=== PATIENT | female | born 1970 | race Caucasian/White ===

== ENCOUNTER 2017-06-12 20:17 | Emergency (ER) | payer OTHER ==
[~2017-06-12] VITALS: Ht 177.8 cm; Wt 73.4 kg
[2017-06-12] MEDS ORDERED: KEFLEX500 MG PO (21:24)
[2017-06-12 21:55] VITALS: BP 120/79
== END 2017-06-12 21:56 | disposition home or self-care (01) ==
LOC: EME 20:17
DX: I88.9 Nonspecific lymphadenitis, unspecified (principal); F17.200 Nicotine dependence, unspecified, uncomplicated
CPT/HCPCS: 93005; 99281; 99283